=== PATIENT | male | born 1950 | race Caucasian/White ===

== ENCOUNTER → 2023-03-06 | Outpatient (CLI) | payer BC, SELFPAY ==
[2023-03-06 17:45] LABS: Absolute Lymphocyte Count 2.06 X10^3/uL (0.83-4.51); Absolute Neutrophil Count 5.5 X10^3/uL (2.0-7.7); Basophil# 0.04 X10^3/uL; Basophil% 0.4 % (0-1); Eosinophils% 5.6 % (0-5); Hematocrit 45.3 % (40-54); Hemoglobin 14.2 g/dL (13.0-16.5); Lymphocyte # 2.06 X10^3/ul (0.83-4.51); Lymphocyte % 22.9 % (19-41); Mean Corp Hgb Conc 31.3 g/dL (32-36); Mean Corpuscular Hgb 30.5 pg (27.0-32.0); Mean Corpuscular Volume 97.4 fL (80-94); Mean Platelet Vol. 10.7 fl (6.2-12.0); Monocyte# 0.79 X10^3/uL; Monocyte% 8.8 % (0-10); NRBC Flagged by Analyzer 0 % (0-5); Neutrophil # 5.48 X10^3/uL (2.7-7.7); Platelet Count 219 K/mm3 (150-450); RBC Distribution Width CV 12.1 % (11.6-14.6); RBC Distribution Width SD 43.6 fl (35.1-43.9); Red Blood Count 4.65 M/mm3 (4.6-6.2)
[2023-03-06 18:28] LABS: ALB/GLOB Ratio 0.9 RATIO (0.9-2.4); AST(SGOT) 25 U/L (15-37); Alanine Aminotransfer ALT/SGPT 23 U/L (16-61); Albumin, Serum 3.7 g/dL (3.2-5.0); Alkaline Phosphatase 64 U/L (45-117); Anion Gap 4 (5-15); BUN 8 mg/dL (7-18); Calcium,Total 8.7 mg/dL (8.5-10.1); Chloride 102 mmol/L (98-107); Cholesterol 144 mg/dL (200); Creatinine, Serum 1.14 mg/dL (0.70-1.30); EST Glomerular Filtration Rate 67 mL/min (>60); Est Glom Filt Rate - Afr Amer 81 mL/min (>60); Globulin 4.2 g/dL (2.2-4.2); Glucose 108 mg/dL (74-106); High Density Lipoprotein 41 mg/dL; PSA,Total - Annual Screen 0.64 ng/mL (0.00-4.00); Protein, Total 7.9 g/dL (6.4-8.2); Sodium Level 136 mmol/L (136-145); Triglycerides 76 mg/dL; Very Low Density Lipoprotein 15 mg/dL (5-40)
== END | disposition home or self-care (01) ==
PROVIDERS: PCP Family Medicine; Visit Provider Family Medicine
DX: M81.0 Age-related osteoporosis without current pathological fracture (principal); E78.2 Mixed hyperlipidemia
CPT/HCPCS: 36415; 80053; 80061; 84153; 84443; 85025; G0103

== ENCOUNTER → 2023-03-26 | Outpatient (CLI) | payer MEDICARE, SELFPAY ==
--- NOTE | 2023-03-26 07:24 | US_ITS ---
EXAM: US RETROPERITONEAL LIMITED, AORTA CLINICAL INDICATION: AAA SCREENING TECHNIQUE: Valiente scale and color Doppler imaging was obtained of the abdominal aorta. COMPARISON: No relevant prior studies available. FINDINGS: AORTA: There is no abdominal aortic aneurysm. Proximal abdominal aorta measures 2.4 cm in maximum diameter tapering to the distal diameter of 1.6 cm. Normal caliber common iliac arteries. US/Aorta IMPRESSION: No abdominal aortic aneurysm. Electronically Signed: Yaakov Sharpe MD at 16:43 EDT ,
== END | disposition home or self-care (01) ==
PROVIDERS: PCP Family Medicine; Referring Provider Family Medicine; Visit Provider Family Medicine
DX: Z13.6 Encounter for screening for cardiovascular disorders (principal)
CPT/HCPCS: 76775

== ENCOUNTER → 2023-04-03 | Outpatient (CLI) | payer MEDICARE, SELFPAY ==
--- NOTE | 2023-04-03 17:19 | US_ITS ---
EXAM: US SOFT TISSUES HEAD AND NECK, THYROID CLINICAL INDICATION: HYPOTHYROIDISM TECHNIQUE: Greyscale and color doppler imaging was performed of the thyroid gland. COMPARISON: No relevant prior studies available. FINDINGS: LEFT THYROID LOBE: The left lobe of the thyroid measures 2 x 0.6 x 0.8 cm. Homogeneous echotexture with normal vascularity. No thyroid masses identified. RIGHT THYROID LOBE: The right lobe of the thyroid measures 4 x 1.0 x 1.4 cm and is heterogeneous. ISTHMUS: Thyroid isthmus measures 2 mm. No thyroid nodules are present. US/Thyroid IMPRESSION: Heterogeneous right lobe of the thyroid without a discrete mass. Hypoplastic left lobe of thyroid. Electronically Signed: Eloy Benson MD at 1:59 EDT ,
== END | disposition home or self-care (01) ==
LOC: US 17:15
PROVIDERS: PCP Family Medicine; Referring Provider Family Medicine; Visit Provider Family Medicine
DX: E03.9 Hypothyroidism, unspecified (principal)
CPT/HCPCS: 76536

== ENCOUNTER → 2023-05-09 | Outpatient (CLI) | payer MEDICARE, SELFPAY ==
[2023-05-09 10:57] LABS: Free T3 2.3 pg/mL (2.18-3.98); T4 Free Direct 1.48 ng/dL (0.76-1.46); T4 Total, Thyroxin 13.2 ug/dL (4.5-12.1); Thyroid Stim Hormone (TSH) 3.25 uIU/mL (0.358-3.74)
[2023-05-09 11:02] LABS: T3 Total - Triiodothyronine 1.19 ng/mL (0.6-1.81)
[2023-05-19 01:06] LABS: Anti-Thyroglobulin AB 34.9 IU/mL (0.0-0.9); Thyroglobulin RIA 12 ng/mL (.); Thyroid Peroxidase AB 462 IU/mL (0-34); Thyroid Stim Immunoglob <0.10 IU/L (0.00-0.55)
== END | disposition home or self-care (01) ==
LOC: MFPLAB 08:36
PROVIDERS: PCP Family Medicine; Visit Provider Family Medicine
DX: Z12.11 Encounter for screening for malignant neoplasm of colon (principal); R89.9 Unspecified abnormal finding in specimens from other organs, systems and tissues; E03.9 Hypothyroidism, unspecified
CPT/HCPCS: 36415; 84432; 84436; 84439; 84443; 84445; 84480; 84481; 86376; 86800

== ENCOUNTER → 2023-11-11 | Outpatient (CLI) | payer MEDICARE, SELFPAY ==
[2023-11-11 18:05] LABS: Hemoglobin A1c 5.6 % (3.8-5.6)
[2023-11-11 18:24] LABS: ALB/GLOB Ratio 0.9 RATIO (0.9-2.4); AST(SGOT) 27 U/L (15-37); Alanine Aminotransfer ALT/SGPT 23 U/L (16-61); Albumin, Serum 3.5 g/dL (3.2-5.0); Alkaline Phosphatase 71 U/L (45-117); Anion Gap 5 (5-15); BUN 12 mg/dL (7-18); Calcium,Total 8.9 mg/dL (8.5-10.1); Chloride 101 mmol/L (98-107); Creatinine, Serum 0.92 mg/dL (0.70-1.30); EST Glomerular Filtration Rate 86 mL/min (>60); Est Glom Filt Rate - Afr Amer 104 mL/min (>60); Globulin 4.1 g/dL (2.2-4.2); Glucose 82 mg/dL (74-106); Potassium 4.4 mmol/L (3.5-5.1); Protein, Total 7.6 g/dL (6.4-8.2); Sodium Level 134 mmol/L (136-145); T4 Free Direct 1.12 ng/dL (0.76-1.46); Thyroid Stim Hormone (TSH) 4.06 uIU/mL (0.358-3.74)
== END | disposition home or self-care (01) ==
LOC: MFPLAB 16:23
PROVIDERS: PCP Family Medicine; Visit Provider Family Medicine
DX: R73.9 Hyperglycemia, unspecified (principal); E03.9 Hypothyroidism, unspecified
CPT/HCPCS: 36415; 80053; 83036; 84439; 84443

== ENCOUNTER → 2024-05-13 | Outpatient (CLI) | payer MEDICARE, SELFPAY | END | disposition home or self-care (01) | LOC: MFPLAB 16:55 | PROVIDERS: PCP Family Medicine; Referring Provider Family Medicine; Visit Provider Family Medicine | DX: E03.9 Hypothyroidism, unspecified (principal) | CPT/HCPCS: 36415; 84443 ==

== ENCOUNTER 2024-09-27 17:40 | Emergency (ER) | payer MEDICARE, SELFPAY ==
[2024-09-27 17:41] VITALS: BP 116/78; PULSE 106; RESP 17; TEMP 36.6; O2SAT 95
--- NOTE | 2024-09-27 17:51 | RAD_ITS ---
PROCEDURE: FOOT MIN 3 VIEWS 09/27/2024 REASON FOR EXAM: PAIN TECHNIQUE: 3 views of the left foot. COMPARISON: None FINDINGS: Bones: Comminuted fracture of the 1st proximal phalanx. Joints: Normal alignment. Soft tissues: Soft tissues are unremarkable. Other: RAD/Foot min 3 Views IMPRESSION: Comminuted fracture of the 1st proximal phalanx. Reading Location: [facility]
--- NOTE | 2024-09-27 17:51 | RAD_ITS ---
PROCEDURE: ANKLE MIN 3 VIEWS 09/27/2024 REASON FOR EXAM: PAIN TECHNIQUE: 3 views of the left ankle COMPARISON: None FINDINGS: Bones: Subtle comminuted fracture of the distal fibula. Joints: Normal alignment. Mortise appears intact. No effusion. Soft tissues: Soft tissues are unremarkable. Other: RAD/Ankle min 3 Views IMPRESSION: Subtle comminuted fracture of the distal fibula. Reading Location: [facility]
[2024-09-27 17:53] VITALS: BMI 21.1
--- NOTE | 2024-09-27 17:55 | EX.ED.GENINJ ---
HPI <HIWOT Marmolejo - Last Filed: 09/27/24 20:35> History of Present Illness Chief Complaint: Fall Narrative Narrative: Patient presenting today with his daughter due to left foot and ankle pain after a mechanical fall occurred this afternoon. He was walking down 2 steps when he lost his footing and fell onto his left side, injuring his foot and ankle. He denies hitting his head or any LOC, he is not on any blood thinners. Initially he was able to ambulate but the pain became more severe and it became more painful to bear weight, prompting him to come in to be seen. PFSH <HIWOT Marmolejo - Last Filed: 09/27/24 20:35> [facility] Medical History unable to obtain Home Medications ?Medication ?Instructions ?Recorded ?Last Taken ?Type oxycodone 5 mg tablet 5 mg PO Q6H PRN pain 3 days #12 09/27/24 Unknown Rx tabs Allergy/AdvReac Type Severity Reaction Status Date / Time No Known Allergies Allergy Verified 09/27/24 17:45 Family History unable to obtain Surgical History unable to obtain Social History Smoking Status: Unknown if ever smoked ROS <HIWOT Marmolejo - Last Filed: 09/27/24 20:35> ROS ED Constitutional Constitutional ED: Denies chills or fever(s) Cardiovascular Cardiovascular: Denies chest pain Respiratory/Chest Respiratory/Chest: Denies dyspnea Gastrointestinal Gastrointestinal: Denies abdominal pain, nausea or vomiting Musculoskeletal Musculoskeletal: Reports arthralgias Integumentary Denies Abrasions Neurologic Neurologic: Denies paresthesias EXAM <HIWOT Marmolejo - Last Filed: 09/27/24 20:35> Physical Exam Const Vital Signs: 09/27/24 17:41 09/27/24 19:42 Temperature 97.9 F 97.9 F Temperature Source Temporal Pulse Rate 106 H 106 H Respiratory Rate 17 17 Blood Pressure 116/78 116/78 Blood Pressure Mean 90 90 Pulse Ox 95 95 Positive well nourished, well developed and no apparent distress General Appearance ED: well developed HEENT Reports normocephalic and head/scalp atraumatic Mouth ED: Yes moist mucous membranes normal Eyes PERRL and EOMs intact bilaterally Neck full ROM and supple Chest Wall inspection of chest normal Resp normal respiratory effort and clear to auscultation bilaterally Cardio regular rate and regular rhythm Back/Spine normal ROM and normal to inspection Extremity normal to inspection and full ROM Extremity Narrative: Pain to the left first toe and to the left lateral malleolus, full range of motion to the left ankle, no swelling, left DP pulse 2+, good cap refill, sensation intact. No proximal fibular tenderness, full range of motion to the left knee, no knee effusion or pain to palpation to the knee. Neuro oriented x3, moves all extremities, no focal motor deficits and no sensory deficits noted Sensorium / Orientation: awake and alert Psych mental status grossly normal and thought process normal Skin no rashes or lesions noted and no wounds <Dr. John Min DO - Last Filed: 09/28/24 23:45> Physical Exam Const Vital Signs: 09/27/24 17:41 09/27/24 19:42 Temperature 97.9 F 97.9 F Temperature Source Temporal Pulse Rate 106 H 106 H Respiratory Rate 17 17 Blood Pressure 116/78 116/78 Blood Pressure Mean 90 90 Pulse Ox 95 95 MDM <HIWOT Marmolejo - Last Filed: 09/27/24 20:35> [facility] Narrative Medical decision making narrative: Patient presenting with pain to his left first toe and left ankle after a mechanical fall occurred this afternoon. X-rays will be obtained of the toe and ankle to assess for fracture. Patient given Bradley for pain. He does have a comminuted fracture of the first proximal phalanx as well as a comminuted fracture of the distal fibula. He is neurovascularly intact. He was placed in a splint by the attending physician. He will be referred to podiatry, he was given crutches. I have given him a prescription for oxycodone. He can alternate Tylenol and ibuprofen as needed for his pain. RICE instructions were discussed and he will be discharged home in stable condition. Radiography X-Ray: Read by ED Physician Diagnostic Testing: Clinical Impression(s) from Imaging Studies Ankle X-Ray 09/27/24 17:51 IMPRESSION: Subtle comminuted fracture of the distal fibula. Reading Location: [facility] Foot X-Ray 09/27/24 17:51 IMPRESSION: Comminuted fracture of the 1st proximal phalanx. Reading Location: [facility] <Dr. John Min, DO - Last Filed: 09/28/24 23:45> MDM Radiography Diagnostic Testing: Clinical Impression(s) from Imaging Studies Ankle X-Ray 09/27/24 17:51 IMPRESSION: Subtle comminuted fracture of the distal fibula. [facility] 09/27/24 17:51 IMPRESSION: Comminuted fracture of the 1st proximal phalanx. Reading Location: [facility] X-ray of the left ankle as interpreted by the emergency medicine physician reveals a subtle comminuted fracture of the distal fibula X-ray of the left foot as interpreted by the emergency medicine physician reveals a comminuted fracture of the first proximal phalanx Treatment and Re-Evaluation Narrative: I evaluated the patient with the physician ict sales assistant. I agree with their history of present illness physical exam and plan of care. Below is my individual evaluation of the patient. The patient is a 73-year-old male who states that a few hours prior to arrival he was walking down the steps outside when he tripped and fell injuring his left foot and ankle. He denies striking his head or any loss of consciousness. He states that there is no history of bleeding disorder or blood thinner use. The fall was witnessed by family members and they were able to help him up but since that time he had difficulty ambulating secondary to pain in the ankle and foot. He states he took [id number] medication and gave his symptoms a few hours to improve but they have not done so and therefore he comes in for evaluation PE: General: Awake alert no acute distress Heart: Regular rate and rhythm Lungs: Clear to auscultation without signs of respiratory distress Head: Normocephalic atraumatic Cervical spine: No bony deformity or step-off of the cervical spine no midline tenderness to palpation Extremities: Pelvis is stable there is no shortening or external rotation of either lower extremity. Left lower extremity is neurovascularly intact. Patient has soft tissue swelling of the left ankle and left foot. There is pain on palpation along the left lateral malleolus. The Achilles tendon is intact. There is laxity of the left ATFL compared to right concerning for potential tear versus fracture. There is also soft tissue swelling of the left great toe without subungual hematoma noted. All compartments are soft and compressible going against compartment syndrome. Remainder of the exam is normal MDM: Patient reported a mechanical fall and therefore I felt no need for cardiac or syncope workup. He did not strike his head nor is he on blood thinners or has a history of bleeding disorder so I felt no need for head CT as had low concern for traumatic subarachnoid or subdural hemorrhage. With pain and swelling in the ankle and foot there is concern for fracture so x-rays were obtained. X-rays confirmed a left distal fibular fracture and left great toe fracture. The fractures are closed he does not have signs of compartment syndrome there is no findings of ligamentous or tendon tear and therefore there is no need for emergent podiatry/orthopedic consultation. The patient was placed in a Ortho-Glass splint as documented below for stabilization of the fracture. Following this since the fracture stabilized he is safe for discharge with outpatient follow-up Patient had a posterior tibial and sugar-tong splint placed to the left lower extremity. The splint fit the fracture fragments with good approximation and stabilization. After application capillary refill remained less than 3 seconds. Patient tolerated the procedure well without complication Discharge Plan Triage Chief Complaint: Fall ED Midlevel Provider: Ivy Beasley ED Provider: John Min Dx/Rx/DC Orders Clinical Impression: Ankle fracture, left, Fracture of left toe, Accidental fall Instructions: Treating Ankle Fractures, ED Fracture, Toe, Closed Prescriptions: New oxycodone 5 mg tablet 5 mg PO Q6H PRN (Reason: pain) 3 Days Qty: 12 0RF Primary Care Provider: Dutch Nicolas Referrals: Dutch Nicolas MD [Primary Care Provider] - Anthony Jaffe DPM [Med Staff - Active Staff] - 5-7 Days Activity Restrictions/Additional Instructions: Ice your foot and ankle, keep it elevated to help with swelling, follow-up with podiatry. You can alternate Tylenol and ibuprofen every 3-4 hours as needed for pain, you can also take oxycodone as needed for pain. Print Language: Venezuelan Disposition Disposition: Home, Self Care Discharge Date/Time: 09/27/24 19:42
[2024-09-27] MEDS: Acetaminophen 325 MG Tablet 650 MG PO (17:58)
[2024-09-27] MEDS: HYDROcodone Bitartrate/Apap 5/325 Tablet PO (18:37)
[2024-09-27 19:42] VITALS: BP 116/78; PULSE 106; RESP 17; TEMP 36.6; O2SAT 95
== END 2024-09-27 19:42 | disposition home or self-care (01) ==
PROVIDERS: Emergency Provider Emergency Medicine; PCP Family Medicine; Visit Provider Emergency Medicine
DX: S82.452A Displaced comminuted fracture of shaft of left fibula, initial encounter for closed fracture (principal); S62.618A Displaced fracture of proximal phalanx of other finger, initial encounter for closed fracture; W10.9XXA Fall (on) (from) unspecified stairs and steps, initial encounter
CPT/HCPCS: 73610; 73630; 99283

== ENCOUNTER → 2024-10-08 | Outpatient (CLI) | payer MEDICARE, SELFPAY ==
--- NOTE | 2024-10-08 17:16 | RAD_ITS ---
EXAM: Three views left foot CLINICAL HISTORY: Patient fell and landed on left foot. Pain. COMPARISON: Left foot study dated 09/27/2024 TECHNIQUE: Three views of the left foot were obtained. FINDINGS: Three views of the left foot demonstrate a comminuted, intra-articular, nondisplaced, nonangulated fracture involving the middle and distal aspect of the proximal phalanx 1st digit. Soft tissue swelling is noted. The remaining osseous structures appear to be intact without evidence of fracture or dislocation. Remaining joint spaces are well preserved. There is a small spur of the plantar surface of the calcaneus. RAD/Foot min 3 Views IMPRESSION: Comminuted, intra-articular, nondisplaced, nonangulated fracture involving the middle 3rd and distal 3rd aspects of the proximal phalanx 1st digit left foot. Soft tissue swelling is noted. Reading Location: [id number]
--- NOTE | 2024-10-08 17:18 | RAD_ITS ---
PROCEDURE: ANKLE MIN 3 VIEWS 10/08/2024 REASON FOR EXAM: LEFT ANKLE INJURY TECHNIQUE: 3 views of the left ankle COMPARISON: Left ankle study dated 09/27/2024 FINDINGS: Three views of the left ankle demonstrates no fracture or dislocation. Joint spaces are well preserved. No appreciable soft tissue swelling is seen. There is a small spur off the plantar surface of the calcaneus. RAD/Ankle min 3 Views IMPRESSION: Small spur off the plantar surface of the left calcaneus otherwise unremarkable left ankle study. Reading Location: [id number]
== END | disposition home or self-care (01) ==
LOC: MTRAD 17:15
PROVIDERS: PCP Family Medicine; Referring Provider Family Medicine; Visit Provider Family Medicine
DX: S99.912A Unspecified injury of left ankle, initial encounter (principal); S99.822A Other specified injuries of left foot, initial encounter; X58.XXXA Exposure to other specified factors, initial encounter
CPT/HCPCS: 73610; 73630

== ENCOUNTER → 2024-11-09 | Outpatient (CLI) | payer MEDICARE, SELFPAY ==
[2024-11-12 13:08] LABS: Vitamin D 1,25-Dihydroxy 25.8 pg/mL (24.8-81.5)
== END | disposition home or self-care (01) ==
LOC: MTLAB 17:00
PROVIDERS: PCP Family Medicine; Referring Provider Family Medicine; Visit Provider Family Medicine
DX: E03.9 Hypothyroidism, unspecified (principal); R53.83 Other fatigue
CPT/HCPCS: 36415; 82652; 84443

== ENCOUNTER → 2025-05-28 | Outpatient (CLI) | payer MEDICARE, SELFPAY ==
[2025-05-28 18:36] LABS: PSA,Total - Annual Screen 0.50 ng/mL (0.02-4.00)
== END | disposition home or self-care (01) ==
LOC: MFPLAB 13:55
PROVIDERS: PCP Family Medicine
DX: Z12.5 Encounter for screening for malignant neoplasm of prostate (principal); Z13.1 Encounter for screening for diabetes mellitus
CPT/HCPCS: 36415; 83036; 84153; G0103